=== PATIENT | male | born 1980 | race Hispanic/Latino ===

== ENCOUNTER 2021-09-27 20:02 | Emergency (ER) | payer OTHER ==
[2021-09-27 20:03] VITALS: BP 154/84
[2021-09-27] MEDS ORDERED: MORPHINE 2 MG SYG IVP ONE (20:30)
[2021-09-27] MEDS ORDERED: ONDANSETRON 4MG INJ IVP ONE (20:30)
[2021-09-27 20:50] LABS: BASOPHILS % (AUTO) 0.8 % (0.0-5.0); EOSINOPHILS % (AUTO) 15.7 % (0.0-8.0); HEMATOCRIT 42.1 % (42-54); LYMPHOCYTES % (AUTO) 38.2 % (21.0-51.0); MEAN CORPUSCULAR HEMOGLOBIN 32.5 pg (27.0-33.0); MEAN CORPUSCULAR HGB CONC 34.2 g/dL (32.0-36.0); NEUTROPHILS % (AUTO) 37.1 % (40.0-77.0); PLATELET COUNT (AUTO) 166 K/uL (130-400); RED BLOOD CELL COUNT(AUTO) 4.43 MIL/uL (4.50-6.20); RED CELL DISTRIBUTION WIDTH 12.9 % (11.0-15.5); WHITE BLOOD COUNT (AUTO) 8.3 K/uL (4.8-10.8)
[2021-09-27 21:01] LABS: CREATININE 0.8 mg/dL (0.5-1.5); POTASSIUM 3.1 mmol/L (3.5-5.1)
[2021-09-27 21:05] LABS: ALBUMIN 3.5 g/dL (3.5-5.0)
[2021-09-27] MEDS ORDERED: POTASSIUM BICARB/CIT AC 25 MEQ TABLET.EFF PO ONE (21:30)
[2021-09-27] MEDS ORDERED: CEFAZOLIN SODIUM 1 GM VIAL IVP SCH (22:00)
[2021-09-27] MEDS ORDERED: TETANUS/DIPHTHERIA TOXOID [ADULT] 0.5 ML VIAL IM ONE (22:00)
[2021-09-27] MEDS ORDERED: MORPHINE 4 MG SYG IM ONE (22:00)
== END 2021-09-28 00:06 | disposition short-term general hospital (02) ==
LOC: EDH 20:02
DX: S02.40FA Zygomatic fracture, left side, initial encounter for closed fracture (principal); S16.1XXA Strain of muscle, fascia and tendon at neck level, initial encounter; S40.012A Contusion of left shoulder, initial encounter; Z20.822 Contact with and (suspected) exposure to COVID-19; R79.89 Other specified abnormal findings of blood chemistry; Y04.8XXA Assault by other bodily force, initial encounter; Y93.89 Activity, other specified; Y92.89 Other specified places as the place of occurrence of the external cause; Y99.8 Other external cause status
CPT/HCPCS: 99285; 70450; 96374; 71045; 96375; 87635; 84484; 80053; 85025; 36415; 90714; 73130; 73030; 72125; 70486; 90471; 96372; C9803; J0690; J2405; J2270